=== PATIENT | female | born 1990 | race African-American/Black ===

== ENCOUNTER 2024-03-11 23:32 | Emergency (ER) | payer MEDICAID ==
[2024-03-11 23:40] VITALS: PULSE 83; O2SAT 100
[2024-03-12] MEDS ORDERED: ONDANSETRON HCL 8MG TABLET PO ONE (02:00)
[2024-03-12] MEDS: DIPHENOXYLATE/ATROPINE 2.5/0.025MG TABLET PO ONE (02:00)
[2024-03-12] MEDS: ACETAMINOPHEN 325MG TABLET PO ONE (02:00)
[2024-03-12] MEDS: ONDANSETRON HCL 4MG TABLET PO NR (02:15)
[2024-03-12] MEDS ORDERED: DIPH-1091 MT (02:43)
[2024-03-12] MEDS ORDERED: TOPUD MT (02:43)
[2024-03-12] MEDS ORDERED: ONDA4TAB50 MT (02:43)
== END 2024-03-12 03:13 | disposition home or self-care (01) ==
LOC: ER 23:32
DX: R11.2 Nausea with vomiting, unspecified (principal); R19.7 Diarrhea, unspecified; R51.9 Headache, unspecified; Z88.6 Allergy status to analgesic agent
CPT/HCPCS: 99283; Q0162